=== PATIENT | female | born 1965 | race Caucasian/White ===

== ENCOUNTER → 2020-11-02 | Day surgery (SDC) | payer OTHER ==
[~2020-11-02] VITALS: Ht 152.4 cm; Wt 77.1 kg
[~2020-11-02] MED LIST: CYMBALTA20 MG PO; LIPITOR40 MG PO; PROBIOTIC1 EAC1 PO; TIZANIDINE HCL4 MG PO; VITAMIN D350 MC5 PO
[2020-11-02 09:13] LABS: HCT 44.7 % (37.0-47.0); HGB 15.1 g/dl (12.5-16.0); MCH 32.1 pg (25.0-31.0); MCHC 33.8 g/dL (32.0-36.0); MCV 95.1 fL (78.0-100.0); RBC 4.7 M/uL (4.20-5.40); RDW 12.4 % (11.5-14.0); WBC 9.6 K/uL (4.0-10.5)
[2020-11-02 09:37] LABS: ALBUMIN 3.9 g/dL (3.4-5.0); BILIRUBIN - TOTAL 0.7 mg/dL (0.2-1.0); BUN/CREAT RATIO (CALC) 12.7 RATIO; CREATININE 0.79 mg/dL (0.51-0.95); GLOBULIN (CALCULATION) 4.4 g/dL; TOTAL PROTEIN 8.3 g/dL (6.4-8.2)
== END | disposition home or self-care (01) ==
LOC: FAS 08:21
PROVIDERS: Surgery
DX: K57.30 Diverticulosis of large intestine without perforation or abscess without bleeding (principal); K29.50 Unspecified chronic gastritis without bleeding; K21.00 Gastro-esophageal reflux disease with esophagitis, without bleeding; Z12.11 Encounter for screening for malignant neoplasm of colon; I10 Essential (primary) hypertension; E78.00 Pure hypercholesterolemia, unspecified; Z98.51 Tubal ligation status; F32.9 Major depressive disorder, single episode, unspecified; E78.5 Hyperlipidemia, unspecified
CPT/HCPCS: 36415; 80053; 84703; J2250; J2704; J7120